=== PATIENT | female | born 1970 | race Two or more races ===

== ENCOUNTER 2018-04-25 14:01 | Inpatient (IN) | payer SELFPAY ==
[~2018-04-25] VITALS: Ht 160 cm; Wt 135.6 kg
--- NOTE | ~2018-04-25 | MORECARE ---
CASE MANAGEMENT DISCHARGE SUMMARY PATIENT: JOSUE SAINI UNIT: [id number] ADM DATE: 04/27/18 AGE: 48 : 70 SEX: F ROOM/BED: D.1212 AUTHOR: LINDA SCANLON PHYSICIAN: REFERRING PHYSICIAN: JAIRO MEAD MD DATE OF SERVICE: 04/27/18 Discharge Plan Patient Name: JOSUE SAINI Facility: [facility]:[place] : 1970 Planned Disposition: Oth Inst w Planned Readm Anticipated Discharge Date: 04/27/18 Discharge Date: Expected LOS: 1 Initial Reviewer: [email or web address] Initial Review Date: 04/27/2018 Generated: 04/27/18 6:16 pm DCPIA - Discharge Planning Initial Assessment Updated by [email or web address]: Brittany Morley on 04/27/18 5:14 pm * How many steps to enter\exit or inside your home? * [facility] * Pharmacy [facility] * Preadmission Environment Home with Family * ADLs Independent * Equipment None * List name and contact numbers for known caregivers / representatives who currently or will assist patient after discharge: ARLINE (DAUGHTER) [phone] * Verbal permission to speak to the caregivers and representatives has been obtained from the patient. Yes * Community resources currently utilized None * Additional services required to return to the preadmission environment? Yes * Can the patient safely return to the preadmission environment? No * Has this patient been hospitalized within the prior 30 days at any hospital? No Patient Name: JOSUE SAINI Page [id number] at 1716 All edits/amendments must be made on the electronic document DICTATION DATE: 04/27/181715 SPACE CONTROL AGENT: DANAE 04/27/181715 RPT#: [id number] DC DATE: STATUS: ADM IN [facility] [address] [place] [address] END OF REPORT
--- NOTE | ~2018-04-25 | MORECARE ---
CASE MANAGEMENT DISCHARGE SUMMARY PATIENT: JOSUE SAINI UNIT: [id number] ADM DATE: 04/27/18 AGE: 48 : 70 SEX: F ROOM/BED: D.1212 AUTHOR: LINDA SCANLON PHYSICIAN: REFERRING PHYSICIAN: JAIRO MEAD MD DATE OF SERVICE: 04/27/18 Discharge Plan Patient Name: JOSUE SAINI Facility: [facility]:[place] : 1970 Planned Disposition: Oth Inst w Planned Readm Anticipated Discharge Date: 04/27/18 Discharge Date: Expected LOS: 1 Initial Reviewer: [email or web address] Initial Review Date: 04/27/2018 Generated: 04/27/18 6:26 pm Comments DCP- Discharge Planning Updated by [email or web address]: Brittany Morley on 04/27/18 4:[address] Patient Name: JOSUE SAINI Admission Status: ER Accout number: [id number] Admission Date: 04-27-2018 : 1970 Admission Diagnosis: Attending: JAIRO MEAD Current LOS: 1 Anticipated DC Date: 04-27-2018 Planned Disposition: Oth Inst w Planned Readm Primary Insurance: UNINSURED DISCOUNT PLAN Discharge Planning Comments: CM MET WITH PATIENT AND FAMILY REGARDING D/C NEEDS AND PLANS. PATIENTS DAUGHTER (ARLINE) WAS HELPING HER MOTHER IN THE ROOM. PATIENT LIVES AT HOME IN [place] AND HAS NO DME EQUIPMENT. PATIENTS PCP IS [facility]. PATIENT STATED SHE IS SUPPOSE TO TRANSFER TO [facility] AND HER NURSE CONFIRMED THAT AND IS HANDLING THE TRANSFER. PATIENT ASKED IF HER DAUGHTER COULD GO WITH HER BY AMBULANCE AND STAY WITH HER AT HOSPITAL BEING THAT NO FAMILY COULD COME TO THE HOSPITAL THERE. PATIENT STATED SHE DOES AGREE TO THE TRANSFER BUT WOULD ALSO LIKE HER DAUGHTER TO GO WITH HER. THE NURSE IS TALKING TO [facility] AND THE HOSPITAL REGARDING THIS SITUATION. CM WILL CONTINUE TO FOLLOW PATIENT WITH D/C NEEDS AND PLANS. [facility]. [facility] ON [address] NUNN (DAUGHTER) [phone] Manager Dish: Brittany Morley DCPIA - Discharge Planning Initial Assessment Updated by [email or web address]: Brittany Morley on 04/27/18 5:14 pm * How many steps to enter\exit or inside your home? * [facility] * Pharmacy [facility] * Preadmission Environment Home with Family * ADLs Independent * Equipment None * List name and contact numbers for known caregivers / representatives who currently or will assist patient after discharge: ARLINE (DAUGHTER) [phone] * Verbal permission to speak to the caregivers and representatives has been obtained from the patient. Yes * Community resources currently utilized None * Additional services required to return to the preadmission environment? Yes * Can the patient safely return to the preadmission environment? No * Has this patient been hospitalized within the prior 30 days at any hospital? No Last DP export: 04/27/18 4:16 Patient Name: JOSUE SAINI Page [id number] at 1726 All edits/amendments must be made on the electronic document DICTATION DATE: 04/27/181725 EDGE RUNNER: DANAE 04/27/181725 RPT#: [id number] DC DATE: STATUS: ADM IN [facility] [address] [place] [address] END OF REPORT
--- NOTE | ~2018-04-25 | MORECARE ---
CASE MANAGEMENT DISCHARGE SUMMARY PATIENT: JOSUE SAINI UNIT: [id number] ADM DATE: 04/27/18 AGE: 48 : 70 SEX: F ROOM/BED: D.1212 AUTHOR: LINDA SCANLON PHYSICIAN: REFERRING PHYSICIAN: JAIRO MEAD MD DATE OF SERVICE: 04/27/18 Discharge Plan Patient Name: JOSUE SAINI Facility: [facility]:[place] : 1970 Planned Disposition: Oth Inst w Planned Readm Anticipated Discharge Date: 04/27/18 Discharge Date: Expected LOS: 1 Initial Reviewer: [email or web address] Initial Review Date: 04/27/2018 Generated: 04/27/18 7:10 pm Comments DCP- Discharge Planning Updated by [email or web address]: Brittany Morley on 04/27/18 4:[address] Patient Name: JOSUE SAINI Admission Status: ER Accout number: [id number] Admission Date: 04-27-2018 : 1970 Admission Diagnosis: Attending: JAIRO MEAD Current LOS: 1 Anticipated DC Date: 04-27-2018 Planned Disposition: Oth Inst w Planned Readm Primary Insurance: UNINSURED DISCOUNT PLAN Discharge Planning Comments: CM MET WITH PATIENT AND FAMILY REGARDING D/C NEEDS AND PLANS. PATIENTS DAUGHTER (ARLINE) WAS HELPING HER MOTHER IN THE ROOM. PATIENT LIVES AT HOME IN [place] AND HAS NO DME EQUIPMENT. PATIENTS PCP IS [facility]. PATIENT STATED SHE IS SUPPOSE TO TRANSFER TO [facility] AND HER NURSE CONFIRMED THAT AND IS HANDLING THE TRANSFER. PATIENT ASKED IF HER DAUGHTER COULD GO WITH HER BY AMBULANCE AND STAY WITH HER AT HOSPITAL BEING THAT NO FAMILY COULD COME TO THE HOSPITAL THERE. PATIENT STATED SHE DOES AGREE TO THE TRANSFER BUT WOULD ALSO LIKE HER DAUGHTER TO GO WITH HER. THE NURSE IS TALKING TO [facility] AND THE HOSPITAL REGARDING THIS SITUATION. CM WILL CONTINUE TO FOLLOW PATIENT WITH D/C NEEDS AND PLANS. [facility]. [facility] ON [facility] [address] NUNN (DAUGHTER) [phone] Wheel Inspector: Brittany Morley DCPIA - Discharge Planning Initial Assessment Updated by [email or web address]: Brittany Morley on 04/27/18 5:14 pm * How many steps to enter\exit or inside your home? * [facility] * Pharmacy [facility] * Preadmission Environment Home with Family * ADLs Independent * Equipment None * List name and contact numbers for known caregivers / representatives who currently or will assist patient after discharge: ARLINE (DAUGHTER) [phone] * Verbal permission to speak to the caregivers and representatives has been obtained from the patient. Yes * Community resources currently utilized None * Additional services required to return to the preadmission environment? Yes * Can the patient safely return to the preadmission environment? No * Has this patient been hospitalized within the prior 30 days at any hospital? No Last DP export: 04/27/18 4:26 Patient Name: JOSUE SAINI Page 28556 at 1810 All edits/amendments must be made on the electronic document DICTATION DATE: 04/27/181808 DOOR GLASS INSTALLER: DANAE 04/27/181808 RPT#: [id number] DC DATE: STATUS: ADM IN [facility] [address] [place] [address] END OF REPORT
--- NOTE | ~2018-04-25 | MORECARE ---
CASE MANAGEMENT DISCHARGE SUMMARY PATIENT: JOSUE SAINI UNIT: [id number] ADM DATE: 04/27/18 AGE: 48 : 70 SEX: F ROOM/BED: D.1212 AUTHOR: CAPO,DOC PHYSICIAN: REFERRING PHYSICIAN: JAIRO MEAD MD DATE OF SERVICE: 04/28/18 Discharge Plan Patient Name: JOSUE SAINI Facility: [facility]:[place] : 1970 Planned Disposition: Oth Inst w Planned Readm Anticipated Discharge Date: 04/27/18 Discharge Date: 04/28/2018 Expected LOS: 1 Initial Reviewer: [email or web address] Initial Review Date: 04/27/2018 Generated: 04/28/18 11:01 am Comments DCP- Discharge Planning Updated by [email or web address]: Brittany Morley on 04/27/18 4:[address] Patient Name: JOSUE SAINI Admission Status: ER Accout number: [id number] Admission Date: 04-27-2018 : 1970 Admission Diagnosis: Attending: JAIRO MEAD Current LOS: 1 Anticipated DC Date: 04-27-2018 Planned Disposition: Oth Inst w Planned Readm Primary Insurance: UNINSURED DISCOUNT PLAN Discharge Planning Comments: CM MET WITH PATIENT AND FAMILY REGARDING D/C NEEDS AND PLANS. PATIENTS DAUGHTER (ARLINE) WAS HELPING HER MOTHER IN THE ROOM. PATIENT LIVES AT HOME IN [place] AND HAS NO DME EQUIPMENT. PATIENTS PCP IS [facility]. PATIENT STATED SHE IS SUPPOSE TO TRANSFER TO [facility] AND HER NURSE CONFIRMED THAT AND IS HANDLING THE TRANSFER. PATIENT ASKED IF HER DAUGHTER COULD GO WITH HER BY AMBULANCE AND STAY WITH HER AT HOSPITAL BEING THAT NO FAMILY COULD COME TO THE HOSPITAL THERE. PATIENT STATED SHE DOES AGREE TO THE TRANSFER BUT WOULD ALSO LIKE HER DAUGHTER TO GO WITH HER. THE NURSE IS TALKING TO [facility] AND THE HOSPITAL REGARDING THIS SITUATION. CM WILL CONTINUE TO FOLLOW PATIENT WITH D/C NEEDS AND PLANS. [facility]. [facility] [address] [facility] ARLINE (DAUGHTER) [phone] Rd Project Manager: Brittany Morley DCPIA - Discharge Planning Initial Assessment Updated by [email or web address]: Brittany Morley on 04/27/18 5:14 pm * How many steps to enter\exit or inside your home? * [facility] * Pharmacy [facility] * Preadmission Environment Home with Family * ADLs Independent * Equipment None * List name and contact numbers for known caregivers / representatives who currently or will assist patient after discharge: ARLINE (DAUGHTER) [phone] * Verbal permission to speak to the caregivers and representatives has been obtained from the patient. Yes * Community resources currently utilized None * Additional services required to return to the preadmission environment? Yes * Can the patient safely return to the preadmission environment? No * Has this patient been hospitalized within the prior 30 days at any hospital? No Last DP export: 04/27/18 5:10 Patient Name: JOSUE SAINI Page 37698 at 1001 All edits/amendments must be made on the electronic document DICTATION DATE: 04/28/18 1001 CARNIVAL WORKER: DANAE 04/28/18 1001 RPT#: [id number] DC DATE:04/28/18 STATUS: DIS IN [facility] [address] [place] [address] END OF REPORT
[2018-04-25 14:58] LABS: BASOPHILS 0.2 % (0-2); EOSINOPHILS 1.6 % (0-7); HEMATOCRIT 43.8 % (36.0-48.0); HEMOGLOBIN 14.6 g/dL (12-16); IMMATURE GRANULOCYTES 0.3 % (0-5); LYMPHOCYTES 35.9 % (15-50); MCH 30.3 pg (26.0-34.0); MCHC 33.3 g/dL (31.0-37.0); MCV 90.9 fL (80.0-100.0); RBC 4.82 10x6/uL (4.00-5.40); RDW 13.4 % (11.5-14.5); WBC 9.3 10x3/uL (4.8-10.8)
[2018-04-25 14:59] LABS: PLATELET COUNT 287 10x3/uL (130-400)
[2018-04-25 15:32] LABS: APTT 31.5 SECONDS (22.8-39.4); INR 1.02 (0.85-1.17); PROTIME 12.9 SECONDS (11.6-15.0)
[2018-04-25 15:39] LABS: ALBUMIN 3.4 g/dL (3.4-5.0); ALKALINE PHOSPHATASE 106 U/L (46-116); ALT (SGPT) 44 U/L (10-68); BILIRUBIN - TOTAL 0.32 mg/dL (0.2-1.3); CALC OSMOLALITY 280 mosm/kg (275-300); CALCIUM 9.3 mg/dL (8.5-10.1); CARBON DIOXIDE 27.4 mmol/L (21.0-32.0); CHLORIDE - SERUM 102 mmol/L (98-107); CREATININE - SERUM 0.7 mg/dL (0.6-1.3); GLUCOSE 156 mg/dL (74-106); POTASSIUM - SERUM 3.9 mmol/L (3.5-5.1); PROTEIN - SERUM 8.6 g/dL (6.4-8.2); SODIUM 140 mmol/L (136-145); UREA NITROGEN 9 mg/dL (7-18); eGFR NON AFRICAN AMERICAN > 90 mL/min (90-120)
[2018-04-25 15:52] LABS: APPEARANCE CLEAR (CLEAR); BILIRUBIN NEGATIVE (NEGATIVE); COLOR STRAW (YELLOW); GLUCOSE NEGATIVE (NEGATIVE); KETONE NEGATIVE (NEGATIVE); NITRITE NEGATIVE (NEGATIVE); PROTEIN NEGATIVE (NEGATIVE); SPECIFIC GRAVITY 1.005 (1.005-1.020); UROBILINOGEN NORMAL (NORMAL)
[2018-04-25 15:53] LABS: EPITHELIAL CELLS 0-5 /hpf (0-5); RED CELLS - URINE 0-5 /hpf (0-5); WHITE CELLS - URINE 0-5 /hpf (0-5)
[2018-04-25 15:54] LABS: BACTERIA FEW /hpf (NONE SEEN)
[2018-04-25 18:00] VITALS: BP 140/64
[2018-04-25 21:34] VITALS: BP 120/63
[2018-04-26] VITALS (7 sets, daily range): BP systolic 100–140; BP diastolic 41–64; Ht 160 cm; Wt 135.6 kg
[2018-04-26 07:20] LABS: CHOL - HDL RATIO 4.1 ratio (2.3-4.1); LDL-HDL RATIO 2.3 ratio (1.5-3.5)
[2018-04-27] VITALS: BP 132/62
[2018-04-27 04:00] VITALS: BP 116/63
[2018-04-27 05:27] LABS: BASOPHILS 0.2 % (0-2); EOSINOPHILS 2.3 % (0-7); HEMATOCRIT 39.7 % (36.0-48.0); HEMOGLOBIN 12.9 g/dL (12-16); IMMATURE GRANULOCYTES 0.3 % (0-5); LYMPHOCYTES 45.3 % (15-50); MCH 29.5 pg (26.0-34.0); MCHC 32.5 g/dL (31.0-37.0); MCV 90.8 fL (80.0-100.0); MEAN PLATELET VOLUME 10.6 fL (7.4-10.4); MONOCYTES 6.1 % (2-11); NEUTROPHILS 45.8 % (40-80); PLATELET COUNT 246 10x3/uL (130-400); RBC 4.37 10x6/uL (4.00-5.40); RDW 13.2 % (11.5-14.5); WBC 8.9 10x3/uL (4.8-10.8)
[2018-04-27 05:39] LABS: CALC OSMOLALITY 285 mosm/kg (275-300); CALCIUM 8.4 mg/dL (8.5-10.1); CARBON DIOXIDE 24.7 mmol/L (21.0-32.0); CHLORIDE - SERUM 106 mmol/L (98-107); CREATININE - SERUM 0.7 mg/dL (0.6-1.3); GLUCOSE 135 mg/dL (74-106); POTASSIUM - SERUM 3.7 mmol/L (3.5-5.1); SODIUM 142 mmol/L (136-145); eGFR NON AFRICAN AMERICAN > 90 mL/min (90-120)
[2018-04-27 05:49] LABS: UREA NITROGEN 14 mg/dL (7-18)
[2018-04-27 08:13] VITALS: BP 113/56
[2018-04-27 12:16] VITALS: BP 122/52
[2018-04-27 16:18] VITALS: BP 120/50
== END 2018-04-28 00:32 | disposition short-term general hospital (02) | DRG 71 ==
LOC: D.ER 14:01 → D.M3 15:52 → D.EDHOLD 15:52 → OBSVTIME 15:52 → D.EDHOLD 15:52 → D.M3 16:39
PROVIDERS: Emergency Medicine; Internal Medicine Nephrology
DX: G93.9 Disorder of brain, unspecified (principal); Z68.43 Body mass index [BMI] 50.0-59.9, adult; G51.0 Bell's palsy; R73.03 Prediabetes; E66.9 Obesity, unspecified